=== PATIENT | female | born 1970 | race Two or more races ===

== ENCOUNTER 2017-04-04 13:51 | Emergency (ER) | payer BC, MEDICAID ==
[~2017-04-04] VITALS: Ht 157.5 cm; Wt 70.3 kg
--- NOTE | 2017-04-04 13:51 | NUR ---
C/O NAUSEA, VOMITING AND HEADACHE X 3 DAYS
[2017-04-04] MEDS ORDERED: SUCRALFATE 1 G TABLET ONE (14:44)
[2017-04-04 14:51] LABS: BASOPHILS % (AUTO) 0.3 % (0.0-2.0); EOSINOPHILS # (AUTO) 0.2 /CMM (0.0-0.7); EOSINOPHILS % (AUTO) 3.4 % (0.0-6.0); HEMATOCRIT 40 % (33-45); MEAN CORPUSCULAR HEMOGLOBIN 27 PG (26.0-33.0); MEAN CORPUSCULAR HGB CONC 33 g/dl (31.0-36.0); MEAN CORPUSCULAR VOLUME 81 fL (82-100); MONOCYTES # (AUTO) 0.6 /CMM (0.1-1.30); MONOCYTES % (AUTO) 7.7 % (2.0-12.0); NEUTROPHILS # (AUTO) 4.4 /CMM (1.8-8.9); NEUTROPHILS % (AUTO) 60.6 % (43.0-81.0); PLATELET COUNT (AUTO) 266 /CMM (150-450); RDW COEFFICIENT OF VARIATION 13.8 (11.5-15.0); RED BLOOD CELL COUNT(AUTO) 4.92 MIL/uL (4.0-5.2); WHITE BLOOD COUNT (AUTO) 7.2 K/uL (4.3-11.0)
[2017-04-04 14:51] LABS: APPEARANCE,URINE Clear (CLEAR); BILIRUBIN,URINE Negative (NEGATIVE); BLOOD, URINE Large Ery/uL (NEGATIVE); COLOR,URINE Yellow (YELLOW); KETONES,URINE Negative (NEGATIVE); LEUKOCYTE ESTERASE ,URINE Negative (NEGATIVE); NITRITE, URINE Negative (NEGATIVE); PH,URINE 6.5 (5.0-8.0); PROTEIN,URINE Negative (NEGATIVE); UGLUCOSE Negative (NEGATIVE); UROBILINOGEN,URINE 0.2 EU/dL (0.2)
[2017-04-04 14:56] LABS: PREGNANCY TEST URINE QUAL NEGATIVE (NEGATIVE)
[2017-04-04] MEDS ORDERED: SUCRALFATE 1 G TABLET PO ONE (15:00)
[2017-04-04 15:02] LABS: CALCIUM, SERUM 8.8 mg/dL (8.5-10.1); CARBON DIOXIDE 27 mmol/L (21-32); CHLORIDE 103 mmol/L (98-107); CREATININE 0.7 mg/dL (0.6-1.3); GLUCOSE 100 mg/dL (74-106); SODIUM SERUM 137 mmol/L (136-145); UREA NITROGEN, BLOOD 7 mg/dL (7-18)
[2017-04-04 15:02] LABS: RBC,URINE 21-50 /HPF (0-2)
[2017-04-04 15:03] LABS: BACTERIA,URINE Rare /HPF (None Seen); SQUAMOUS EPITHELIAL CELL,UR Few /HPF (None Seen); WBC,URINE NONE SEEN /HPF (0-3)
[2017-04-04 15:08] LABS: ALANINE AMINOTRANSFERASE 24 U/L (12-78); ALBUMIN 3.5 g/dL (3.4-5.0); ALKALINE PHOSPHATASE 82 U/L (46-116); ASPARTATE AMINOTRANSFERASE 23 U/L (15-37); BILIRUBIN,DIRECT 0.1 mg/dL (0.0-0.2); BILIRUBIN,TOTAL 0.4 mg/dL (0.2-1.0); LIPASE 91 U/L (73-393); TOTAL PROTEIN, SERUM 8.2 g/dL (6.4-8.2)
[2017-04-04 15:10] LABS: TROPONIN I < 0.017 ng/mL (0.00-0.056)
--- NOTE | 2017-04-04 15:32 | NUR ---
Patient discharged to home in stable condition. Written and verbal after care instructions given. Patient verbalizes understanding of instruction.
[2017-04-04 15:34] VITALS: BP 120/71
== END 2017-04-04 15:34 | disposition home or self-care (01) ==
LOC: ER 13:54
DX: R10.9 Unspecified abdominal pain (principal); K21.9 Gastro-esophageal reflux disease without esophagitis; K29.70 Gastritis, unspecified, without bleeding; Z88.0 Allergy status to penicillin; Z90.49 Acquired absence of other specified parts of digestive tract
CPT/HCPCS: 36415; 80048; 80076; 81001; 83690; 84484; 84703; 85025; 93005; 99285; A4606; Z7610; 81000-TC

== ENCOUNTER 2017-06-14 05:45 | Emergency (ER) | payer BC ==
[~2017-06-14] VITALS: Ht 154.9 cm; Wt 59.0 kg
--- NOTE | 2017-06-14 05:50 | NUR ---
TO BED 4 A 47 YO FEMALE PT BIB SELF FROM HOME, PT C/O INSOMINA, JOINT PAIN, AND STOMACH BURNING X 1 DAY. NAD NOTED. VSS. AMBULATORY WITH STEADY GAIT. COMFORT MEASURES RENERED. AWAITING FOR ER MD ISAACS.
[2017-06-14] MEDS ORDERED: MAG HYDROX/AL HYDROX/SIMETH 30 ML UDC ONE (06:28)
[2017-06-14] MEDS ORDERED: DICYCLOMINE HCL 10 MG CAPSULE PO ONE ×2 (06:28→06:30)
[2017-06-14] MEDS ORDERED: FAMOTIDINE (20 MG) 20 MG TABLET ONE (06:29)
[2017-06-14] MEDS ORDERED: FAMOTIDINE (20 MG) 20 MG TABLET PO ONE (06:30)
[2017-06-14] MEDS ORDERED: MAG HYDROX/AL HYDROX/SIMETH 30 ML UDC PO ONE (06:30)
--- NOTE | 2017-06-14 06:31 | NUR ---
MEDICATED PATIENT ORDERED BY DR CHURCHILL.
--- NOTE | 2017-06-14 06:35 | NUR ---
PAINTER [employer]EL AT BEDSIDE TO DRAW BLOOD.
[2017-06-14 06:52] LABS: BASOPHILS # (AUTO) 0.1 /CMM (0.0-0.2); BASOPHILS % (AUTO) 0.8 % (0.0-2.0); EOSINOPHILS # (AUTO) 0.1 /CMM (0.0-0.7); EOSINOPHILS % (AUTO) 1.4 % (0.0-6.0); HEMATOCRIT 39 % (33-45); HEMOGLOBIN 13.1 g/dL (11.5-14.8); LYMPHOCYTES # (AUTO) 1.5 /CMM (0.8-4.8); LYMPHOCYTES % (AUTO) 22.6 % (20.0-44.0); MEAN CORPUSCULAR HEMOGLOBIN 28 PG (26.0-33.0); MEAN CORPUSCULAR HGB CONC 34 g/dl (31.0-36.0); MEAN CORPUSCULAR VOLUME 83 fL (82-100); MONOCYTES # (AUTO) 0.4 /CMM (0.1-1.30); MONOCYTES % (AUTO) 5.7 % (2.0-12.0); NEUTROPHILS # (AUTO) 4.6 /CMM (1.8-8.9); NEUTROPHILS % (AUTO) 69.5 % (43.0-81.0); PLATELET COUNT (AUTO) 240 /CMM (150-450); RDW COEFFICIENT OF VARIATION 14.6 (11.5-15.0); RED BLOOD CELL COUNT(AUTO) 4.74 MIL/uL (4.0-5.2); WHITE BLOOD COUNT (AUTO) 6.6 K/uL (4.3-11.0)
[2017-06-14 07:02] LABS: CALCIUM, SERUM 9.1 mg/dL (8.5-10.1); CREATININE 0.7 mg/dL (0.6-1.3); POTASSIUM 3.9 mmol/L (3.5-5.1)
[2017-06-14 07:07] LABS: ALBUMIN 3.3 g/dL (3.4-5.0); BILIRUBIN,DIRECT 0.1 mg/dL (0.0-0.2); BILIRUBIN,TOTAL 0.4 mg/dL (0.2-1.0)
--- NOTE | 2017-06-14 07:13 | NUR ---
Report recived from Candida BONILLA for continuity of care. Pt is a/ox4, lying in bed. VSS rr even and unlabored. Will continue to monitor.
--- NOTE | 2017-06-14 08:20 | NUR ---
PT. VERBALIZED UNDERSTANDING OF AFTERCARE INSTRUCTIONS.Patient discharged to home in stable condition. Written and verbal after care instructions given. Patient verbalizes understanding of instruction.
[2017-06-14 08:27] VITALS: BP 121/67
== END 2017-06-14 08:27 | disposition home or self-care (01) ==
LOC: ER 05:49
DX: R10.13 Epigastric pain (principal); K21.9 Gastro-esophageal reflux disease without esophagitis; F32.9 Major depressive disorder, single episode, unspecified; F41.9 Anxiety disorder, unspecified; Z88.0 Allergy status to penicillin
CPT/HCPCS: 36415; 80048; 80076; 83690; 84703; 85025; 99284; A4606; Z7610

== ENCOUNTER 2018-01-24 08:53 | Emergency (ER) | payer BC, OTHER ==
[~2018-01-24] VITALS: Ht 154.9 cm; Wt 64.4 kg
--- NOTE | 2018-01-24 08:56 | NUR ---
A/OX4 C/O RT SIDED ABD PAIN WITH NAUSEA X 1 WEEK. NAD VSS RR EVEN AND UNLABORED. PENDING ER MD ISAACS
[2018-01-24] MEDS ORDERED: MORPHINE SULFATE INJ 4 MG/ML DISP.SYRIN ONE (09:17)
[2018-01-24] MEDS ORDERED: ONDANSETRON HCL/PF 4 MG/2 ML VIAL ONE (09:17)
[2018-01-24 09:21] LABS: BASOPHILS % (AUTO) 0.2 % (0.0-2.0); EOSINOPHILS % (AUTO) 1.3 % (0.0-6.0); HEMATOCRIT 35 % (33-45); HEMOGLOBIN 11.4 g/dL (11.5-14.8); LYMPHOCYTES # (AUTO) 1.4 /CMM (0.8-4.8); LYMPHOCYTES % (AUTO) 34.3 % (20.0-44.0); MEAN CORPUSCULAR HEMOGLOBIN 25 PG (26.0-33.0); MEAN CORPUSCULAR HGB CONC 33 g/dl (31.0-36.0); MEAN CORPUSCULAR VOLUME 76 fL (82-100); MONOCYTES # (AUTO) 0.3 /CMM (0.1-1.30); MONOCYTES % (AUTO) 7.4 % (2.0-12.0); NEUTROPHILS # (AUTO) 2.2 /CMM (1.8-8.9); NEUTROPHILS % (AUTO) 56.8 % (43.0-81.0); PLATELET COUNT (AUTO) 247 /CMM (150-450); RDW COEFFICIENT OF VARIATION 14.1 (11.5-15.0); RED BLOOD CELL COUNT(AUTO) 4.58 MIL/uL (4.0-5.2)
[2018-01-24 09:22] LABS: APPEARANCE,URINE Clear (CLEAR); BILIRUBIN,URINE Negative (NEGATIVE); BLOOD, URINE Trace-intact Ery/uL (NEGATIVE); COLOR,URINE Yellow (YELLOW); KETONES,URINE Negative (NEGATIVE); LEUKOCYTE ESTERASE ,URINE Negative (NEGATIVE); NITRITE, URINE Negative (NEGATIVE); PH,URINE 5.5 (5.0-8.0); PROTEIN,URINE Negative (NEGATIVE); UGLUCOSE Negative (NEGATIVE); UROBILINOGEN,URINE 0.2 EU/dL (0.2)
--- NOTE | 2018-01-24 09:27 | NUR ---
NEW IV STARTED ON RAC, 20G. BLOOD DRAWN AND SENT TO LAB.
[2018-01-24 09:30] LABS: CALCIUM, SERUM 8.7 mg/dL (8.5-10.1); CREATININE 0.7 mg/dL (0.6-1.3); POTASSIUM 4.1 mmol/L (3.5-5.1)
[2018-01-24] MEDS ORDERED: MORPHINE SULFATE INJ 2 MG/ML DISP.SYRIN IV ONE (09:30)
[2018-01-24] MEDS ORDERED: ONDANSETRON HCL/PF 4 MG/2 ML VIAL IVP ONE (09:30)
[2018-01-24] MEDS ORDERED: IV NS 0.9% 1,000 ML BAG IV ONE (09:30)
[2018-01-24 09:34] LABS: BACTERIA,URINE Rare /HPF (None Seen); RBC,URINE 0-2 /HPF (0-2); SQUAMOUS EPITHELIAL CELL,UR Few /HPF (None Seen); WBC,URINE 0-2 /HPF (0-3)
[2018-01-24 09:36] LABS: ALBUMIN 3.6 g/dL (3.4-5.0); BILIRUBIN,DIRECT 0.1 mg/dL (0.0-0.2); BILIRUBIN,TOTAL 0.6 mg/dL (0.2-1.0); TOTAL PROTEIN, SERUM 8.4 g/dL (6.4-8.2)
--- NOTE | 2018-01-24 10:08 | NUR ---
Note undone in ED - 01/24/18 at 1013 by GM IV removed. Catheter intact and site benign. Pressure and 4x4 applied to site. No bleeding noted.Patient discharged to home in stable condition. Written and verbal after care instructions given. Instructed not to drive. Patient verbalizes understanding of instruction.
[2018-01-24 10:09] VITALS: BP 104/61
--- NOTE | 2018-01-24 10:23 | NUR ---
IV removed. Catheter intact and site benign. Pressure and 4x4 applied to site. No bleeding noted.Patient discharged to home in stable condition. Written and verbal after care instructions given. Instructed not to drive. Patient verbalizes understanding of instruction.
== END 2018-01-24 10:16 | disposition home or self-care (01) ==
LOC: ER 08:55
DX: R10.9 Unspecified abdominal pain (principal); K21.9 Gastro-esophageal reflux disease without esophagitis; Z90.49 Acquired absence of other specified parts of digestive tract; Z88.0 Allergy status to penicillin
CPT/HCPCS: 36415; 80048; 80076; 81001; 83690; 85025; 85730; 96374; 96375; 99284; A4606; J2270; J2405; J7030; Z7610; 81000-TC

== ENCOUNTER 2018-08-25 17:12 | Emergency (ER) | payer BC ==
[~2018-08-25] VITALS: Ht 157.5 cm; Wt 65.8 kg
--- NOTE | 2018-08-25 17:30 | NUR ---
LLE PAIN X 2 WEEKS, PT DENIES CHEST PAIN OR SOB. NAD, VSS, WILL MONITOR
[2018-08-25] MEDS ORDERED: ACETAMINOPHEN ES 500 MG TABLET ONE (17:56)
[2018-08-25] MEDS: ACETAMINOPHEN 650 MG/20.3 ML UDC PO ONE (17:56)
--- NOTE | 2018-08-25 19:43 | NUR ---
PT LEFT WITHOUT DISCHARGE INSTRUCTIONS AND PRESCRIPTIONS.
[2018-08-25 19:44] VITALS: BP 137/76
== END 2018-08-25 19:44 | disposition home or self-care (01) ==
LOC: ER 17:13
DX: M25.562 Pain in left knee (principal); K21.9 Gastro-esophageal reflux disease without esophagitis; Z90.49 Acquired absence of other specified parts of digestive tract; Z98.890 Other specified postprocedural states; Z88.0 Allergy status to penicillin
CPT/HCPCS: 73564-TC; 93971-TC

== ENCOUNTER 2020-04-10 10:05 | Emergency (ER) | payer BC, MEDICAID ==
[~2020-04-10] VITALS: Ht 154.9 cm; Wt 73.5 kg
[2020-04-10] MEDS ORDERED: IOHEXOL-300 100 ML VIAL IV ONE (10:12)
--- NOTE | 2020-04-10 10:13 | NUR ---
CAME IN FOR RUQ PAIN x 2WEEKS AND WORSE FOR THE PAST 3 DAYS. TO ER BED 11, HOOKED TO MONITOR AND POX, CHANGED TO HOSP GOWN, WARM BLANKET PROVIDED, PATIENT AAO x 4, BREATHING EVEN AND UNLABORED, NOT IN RESPIRATORY DISTRESS. DR ROTHMAN AT BEDSIDE FOR EVAL.
[2020-04-10] MEDS ORDERED: PANTOPRAZOLE 40 MG VIAL IV ONE (10:30)
[2020-04-10] MEDS ORDERED: IV NS 0.9% 1,000 ML BAG IV ONE (10:30)
[2020-04-10] MEDS ORDERED: KETOROLAC TROMETHAMINE INJ 30 MG/ML VIAL IV ONE (10:30)
--- NOTE | 2020-04-10 10:33 | NUR ---
PICKED UP BY WATCH REPAIRER APPRENTICE VIA [facility] FOR CT SCAN.
[2020-04-10 10:36] LABS: BASOPHILS % (AUTO) 0.2 % (0.0-2.0); EOSINOPHILS % (AUTO) 0.3 % (0.0-6.0); HEMATOCRIT 37 % (33-45); HEMOGLOBIN 11.7 g/dL (11.5-14.8); LYMPHOCYTES # (AUTO) 1.1 /CMM (0.8-4.8); LYMPHOCYTES % (AUTO) 20.9 % (20.0-44.0); MEAN CORPUSCULAR HGB CONC 32 g/dl (31.0-36.0); MEAN CORPUSCULAR VOLUME 75 fL (82-100); MONOCYTES # (AUTO) 0.2 /CMM (0.1-1.30); MONOCYTES % (AUTO) 4.5 % (2.0-12.0); NEUTROPHILS % (AUTO) 74.1 % (43.0-81.0); PLATELET COUNT (AUTO) 278 /CMM (150-450); RED BLOOD CELL COUNT(AUTO) 4.91 MIL/uL (4.0-5.2); WHITE BLOOD COUNT (AUTO) 5.4 K/uL (4.3-11.0)
[2020-04-10] MEDS ORDERED: PANTOPRAZOLE 40 MG VIAL ONE (10:39)
[2020-04-10] MEDS ORDERED: KETOROLAC TROMETHAMINE 15 MG/ML VIAL ONE (10:39)
[2020-04-10 10:45] LABS: CALCIUM, SERUM 8.9 mg/dL (8.5-10.1); CREATININE 0.6 mg/dL (0.6-1.3); POTASSIUM 3.8 mmol/L (3.5-5.1)
[2020-04-10 10:51] LABS: ALBUMIN 3.5 g/dL (3.4-5.0); BILIRUBIN,DIRECT 0.1 mg/dL (0.0-0.2); BILIRUBIN,TOTAL 0.5 mg/dL (0.2-1.0); TOTAL PROTEIN, SERUM 8.6 g/dL (6.4-8.2)
[2020-04-10 10:54] LABS: APPEARANCE,URINE Clear (CLEAR); BILIRUBIN,URINE Negative (NEGATIVE); BLOOD, URINE Negative Ery/uL (NEGATIVE); COLOR,URINE Yellow (YELLOW); KETONES,URINE Negative (NEGATIVE); LEUKOCYTE ESTERASE ,URINE Negative (NEGATIVE); NITRITE, URINE Negative (NEGATIVE); PROTEIN,URINE Negative (NEGATIVE); UGLUCOSE Negative (NEGATIVE); UROBILINOGEN,URINE 0.2 EU/dL (0.2)
--- NOTE | 2020-04-10 11:14 | NUR ---
PICKED UP BY SCHOOL SOCIAL WORKER VIA [facility] FOR CT SCAN.
--- NOTE | 2020-04-10 12:19 | NUR ---
IV removed. Catheter intact and site benign. Pressure and 4x4 applied to site. No bleeding noted.Patient discharged to home in stable condition. Written and verbal after care instructions given. Patient verbalizes understanding of instruction.
[2020-04-10 12:20] VITALS: BP 116/71
== END 2020-04-10 12:21 | disposition home or self-care (01) ==
LOC: ER 10:11
DX: R10.11 Right upper quadrant pain (principal); K21.9 Gastro-esophageal reflux disease without esophagitis; Z90.49 Acquired absence of other specified parts of digestive tract; Z98.890 Other specified postprocedural states; Z88.0 Allergy status to penicillin
CPT/HCPCS: 36415; 71045; 74176; 74177; 80048; 80076; 81001; 83690; 85025; 96361; 96374; 96375; 99285; C9113; J1885; J7030; Q9967; 81000-TC

== ENCOUNTER 2020-06-03 11:00 | Emergency (ER) | payer MEDICAID ==
[~2020-06-03] VITALS: Ht 157.5 cm; Wt 69.4 kg
[2020-06-03] MEDS ORDERED: IV NS 0.9% 1,000 ML BAG IV ONE (11:30)
[2020-06-03] MEDS ORDERED: ONDANSETRON HCL/PF 4 MG/2 ML VIAL IVP ONE (11:30)
[2020-06-03] MEDS ORDERED: MORPHINE SULFATE INJ 2 MG/ML DISP.SYRIN IV ONE (11:30)
[2020-06-03] MEDS ORDERED: ONDANSETRON HCL/PF 4 MG/2 ML VIAL ONE (11:35)
[2020-06-03] MEDS ORDERED: MORPHINE SULFATE INJ 4 MG/ML DISP.SYRIN ONE (11:37)
[2020-06-03 11:41] LABS: BASOPHILS # (AUTO) 0.1 /CMM (0.0-0.2); BASOPHILS % (AUTO) 1.3 % (0.0-2.0); EOSINOPHILS % (AUTO) 0.7 % (0.0-6.0); HEMATOCRIT 38 % (33-45); HEMOGLOBIN 12.2 g/dL (11.5-14.8); LYMPHOCYTES # (AUTO) 1.4 /CMM (0.8-4.8); LYMPHOCYTES % (AUTO) 20.8 % (20.0-44.0); MEAN CORPUSCULAR HGB CONC 32 g/dl (31.0-36.0); MEAN CORPUSCULAR VOLUME 77 fL (82-100); MONOCYTES # (AUTO) 0.3 /CMM (0.1-1.30); MONOCYTES % (AUTO) 4.7 % (2.0-12.0); NEUTROPHILS # (AUTO) 4.9 /CMM (1.8-8.9); NEUTROPHILS % (AUTO) 72.5 % (43.0-81.0); PLATELET COUNT (AUTO) 236 /CMM (150-450); RED BLOOD CELL COUNT(AUTO) 4.97 MIL/uL (4.0-5.2); WHITE BLOOD COUNT (AUTO) 6.8 K/uL (4.3-11.0)
--- NOTE | 2020-06-03 11:46 | NUR ---
c/o abd pain x 1 week, +Nausea 8/10 pain scale. PT AAOX4, VSS. RR EVEN & UNLABORED. DENIES CP, SOB, DIZZINESS, N/V/D AT THIS TIME. PT SEEN & EVAL'D BY DR. GREEN. MEDICATED ORDERED, PT NKECHI WELL. WILL CONT TO MONITOR.
[2020-06-03 11:53] LABS: ALBUMIN 3.6 g/dL (3.4-5.0); BILIRUBIN,DIRECT 0.1 mg/dL (0.0-0.2); BILIRUBIN,TOTAL 0.4 mg/dL (0.2-1.0); CREATININE 0.7 mg/dL (0.6-1.3); POTASSIUM 3.8 mmol/L (3.5-5.1); TOTAL PROTEIN, SERUM 8.4 g/dL (6.4-8.2)
[2020-06-03 12:22] LABS: APPEARANCE,URINE Clear (CLEAR); BILIRUBIN,URINE Negative (NEGATIVE); BLOOD, URINE Moderate Ery/uL (NEGATIVE); COLOR,URINE Yellow (YELLOW); KETONES,URINE Negative (NEGATIVE); LEUKOCYTE ESTERASE ,URINE Negative (NEGATIVE); NITRITE, URINE Negative (NEGATIVE); PH,URINE 8.5 (5.0-8.0); PROTEIN,URINE Negative (NEGATIVE); UGLUCOSE Negative (NEGATIVE); UROBILINOGEN,URINE 0.2 EU/dL (0.2)
[2020-06-03 12:34] LABS: BACTERIA,URINE Few /HPF (None Seen); SQUAMOUS EPITHELIAL CELL,UR Few /HPF (None Seen); WBC,URINE 0-2 /HPF (0-3)
[2020-06-03 13:59] VITALS: BP 118/76
--- NOTE | 2020-06-03 13:59 | NUR ---
Patient discharged to home in stable condition. Written and verbal after care instructions given. Patient verbalizes understanding of instruction. IV removed. Catheter intact and site benign. Pressure and 4x4 applied to site. No bleeding noted.
== END 2020-06-03 13:35 | disposition left against medical advice (07) ==
LOC: ER 11:06
DX: R10.9 Unspecified abdominal pain (principal); R11.0 Nausea; K21.9 Gastro-esophageal reflux disease without esophagitis; Z90.49 Acquired absence of other specified parts of digestive tract; Z98.890 Other specified postprocedural states; Z88.0 Allergy status to penicillin
CPT/HCPCS: 36415; 74176; 80048; 80076; 81001; 83690; 85025; 96361; 96374; 96375; 99284; J2270; J2405; J7030; 81000-TC

== ENCOUNTER 2021-10-11 10:40 | Emergency (ER) | payer MEDICAID ==
[~2021-10-11] VITALS: Ht 157.5 cm; Wt 71.2 kg
--- NOTE | 2021-10-11 10:46 | NUR ---
TO ER BED 9. HEADACHE, DIZZINESS X 1 WEEK, WORST TODAY.
--- NOTE | 2021-10-11 10:53 | NUR ---
DR PRAKASH AT BEDSIDE
[2021-10-11] MEDS ORDERED: METOCLOPRAMIDE HCL 10 MG/2 ML VIAL ONE (11:00)
[2021-10-11] MEDS ORDERED: METOCLOPRAMIDE HCL 10 MG/2 ML VIAL IV ONE (11:00)
[2021-10-11] MEDS ORDERED: IV NS 0.9% 1,000 ML BAG IV ONE (11:00)
--- NOTE | 2021-10-11 11:01 | NUR ---
IV ESTBALISHED R AC 20G. CONVERTED TO SALINE LOCK.
[2021-10-11] MEDS ORDERED: KETOROLAC TROMETHAMINE INJ 30 MG/ML VIAL IV ONE (12:30)
[2021-10-11] MEDS ORDERED: KETOROLAC TROMETHAMINE INJ 30 MG/ML VIAL ONE (12:37)
[2021-10-11] MEDS ORDERED: NAPR-1164 PO (13:30)
[2021-10-11] MEDS ORDERED: MECL-159 PO (13:30)
[2021-10-11 13:56] VITALS: BP 121/81
== END 2021-10-11 13:57 | disposition home or self-care (01) ==
LOC: ER 10:43
DX: R51.9 Headache, unspecified (principal); R42 Dizziness and giddiness; K21.9 Gastro-esophageal reflux disease without esophagitis; Z88.0 Allergy status to penicillin
CPT/HCPCS: 70450; 96361; 96374; 99284; J1885; J2765; J7030

== ENCOUNTER 2022-02-21 14:21 | Emergency (ER) | payer MEDICAID ==
[~2022-02-21] VITALS: Ht 157.5 cm; Wt 70.3 kg
[~2022-02-21 14:21] MED LIST: MECL-159 PO; NAPR-1164 PO
[2022-02-21] MEDS ORDERED: KETOROLAC TROMETHAMINE INJ 30 MG/ML VIAL ONE (14:45)
[2022-02-21] MEDS ORDERED: CYCLOBENZAPRINE 10 MG TABLET ONE (14:45)
[2022-02-21] MEDS: KETOROLAC TROMETHAMINE INJ 30 MG/ML VIAL IM ONE (14:46)
[2022-02-21] MEDS: CYCLOBENZAPRINE 10 MG TABLET PO ONE (14:46)
[2022-02-21] MEDS ORDERED: CYCL5TAB PO (15:29)
[2022-02-21] MEDS ORDERED: IBUP-1957 PO (15:29)
[2022-02-21 15:50] VITALS: BP 118/76
== END 2022-02-21 15:50 | disposition home or self-care (01) ==
LOC: ER 14:28
DX: S20.211A Contusion of right front wall of thorax, initial encounter (principal); M25.511 Pain in right shoulder; K21.9 Gastro-esophageal reflux disease without esophagitis; Z90.49 Acquired absence of other specified parts of digestive tract; Z88.0 Allergy status to penicillin; Z79.1 Long term (current) use of non-steroidal anti-inflammatories (NSAID); Z79.899 Other long term (current) drug therapy; V89.2XXA Person injured in unspecified motor-vehicle accident, traffic, initial encounter; Y93.89 Activity, other specified; Y92.89 Other specified places as the place of occurrence of the external cause; Y99.8 Other external cause status
CPT/HCPCS: 71100-TC; 73030-TC; J1885

== ENCOUNTER 2023-05-22 10:50 | Emergency (ER) | payer BC, MEDICAID ==
[~2023-05-22] VITALS: Ht 157.5 cm; Wt 70.8 kg
[~2023-05-22 10:50] MED LIST changes: +AZIT500T PO; +CYCL5TAB PO; +IBUP-1957 PO
[2023-05-22 12:03] LABS: BASOPHILS % (AUTO) 0.2 % (0.0-2.0); HEMATOCRIT 38 % (33-45); HEMOGLOBIN 12.7 g/dL (11.5-14.8); LYMPHOCYTES # (AUTO) 1.6 K/uL (0.8-4.8); LYMPHOCYTES % (AUTO) 33.7 % (20.0-44.0); MEAN CORPUSCULAR HEMOGLOBIN 29 PG (26.0-33.0); MEAN CORPUSCULAR HGB CONC 34 g/dl (31.0-36.0); MEAN CORPUSCULAR VOLUME 85 fL (82-100); MONOCYTES # (AUTO) 0.3 K/uL (0.1-1.30); MONOCYTES % (AUTO) 6.4 % (2.0-12.0); NEUTROPHILS # (AUTO) 2.8 K/uL (1.8-8.9); NEUTROPHILS % (AUTO) 58.7 % (43.0-81.0); PLATELET COUNT (AUTO) 203 K/uL (150-450); RED BLOOD CELL COUNT(AUTO) 4.43 MIL/uL (4.0-5.2); RED CELL DISTRIBUTION WIDTH 13.9 % (11.5-15.0); WHITE BLOOD COUNT (AUTO) 4.7 K/uL (4.3-11.0)
[2023-05-22 12:11] LABS: CALCIUM, SERUM 8.9 mg/dL (8.5-10.1); CARBON DIOXIDE 29 mmol/L (21-32); CHLORIDE 103 mmol/L (98-107); CREATININE 0.6 mg/dL (0.6-1.3); GLUCOSE 99 mg/dL (74-106); SODIUM SERUM 139 mmol/L (136-145); UREA NITROGEN, BLOOD 8 mg/dL (7-18)
[2023-05-22 14:53] VITALS: BP 136/80; TEMP 98.7; O2SAT 99
== END 2023-05-22 14:54 | disposition home or self-care (01) ==
LOC: ER 10:50
DX: R07.89 Other chest pain (principal); K21.9 Gastro-esophageal reflux disease without esophagitis; F41.9 Anxiety disorder, unspecified; Z90.49 Acquired absence of other specified parts of digestive tract; Z88.0 Allergy status to penicillin
CPT/HCPCS: 36415; 71045-TC; 80048-TC; 84484-TC; 85025-TC

== ENCOUNTER 2023-08-03 11:10 | Emergency (ER) | payer MEDICAID ==
[~2023-08-03] VITALS: Ht 157.5 cm; Wt 81.6 kg
[2023-08-03 11:24] VITALS: TEMP 98.1
[2023-08-03] MEDS ORDERED: ONDANSETRON HCL/PF 4 MG/2 ML VIAL ONE (11:51)
[2023-08-03] MEDS ORDERED: ONDANSETRON HCL/PF 4 MG/2 ML VIAL IVP ONE (12:00)
[2023-08-03] MEDS ORDERED: ACETAMINOPHEN ES 500 MG TABLET PO ONE (12:00)
[2023-08-03] MEDS ORDERED: IV NS 0.9% 1,000 ML BAG IV ONE (12:00)
[2023-08-03] MEDS ORDERED: ACETAMINOPHEN ES 500 MG TABLET ONE (12:07)
[2023-08-03 13:43] LABS: BASOPHILS % (AUTO) 0.3 % (0.0-2.0); HEMATOCRIT 41 % (33-45); HEMOGLOBIN 13.4 g/dL (11.5-14.8); LYMPHOCYTES # (AUTO) 0.7 K/uL (0.8-4.8); MEAN CORPUSCULAR HEMOGLOBIN 28 PG (26.0-33.0); MEAN CORPUSCULAR HGB CONC 33 g/dl (31.0-36.0); MEAN CORPUSCULAR VOLUME 85 fL (82-100); MONOCYTES # (AUTO) 0.3 K/uL (0.1-1.30); MONOCYTES % (AUTO) 8.2 % (2.0-12.0); NEUTROPHILS # (AUTO) 3.1 K/uL (1.8-8.9); NEUTROPHILS % (AUTO) 74.5 % (43.0-81.0); PLATELET COUNT (AUTO) 213 K/uL (150-450); RED BLOOD CELL COUNT(AUTO) 4.77 MIL/uL (4.0-5.2); RED CELL DISTRIBUTION WIDTH 14.2 % (11.5-15.0); WHITE BLOOD COUNT (AUTO) 4.2 K/uL (4.3-11.0)
[2023-08-03 14:06] LABS: ALBUMIN 3.7 g/dL (3.4-5.0); BILIRUBIN,DIRECT 0.1 mg/dL (0.0-0.2); BILIRUBIN,TOTAL 0.5 mg/dL (0.2-1.0); CALCIUM, SERUM 9.5 mg/dL (8.5-10.1); CREATININE 0.7 mg/dL (0.6-1.3); POTASSIUM 3.8 mmol/L (3.5-5.1); TOTAL PROTEIN, SERUM 9.2 g/dL (6.4-8.2)
[2023-08-03 14:33] LABS: APPEARANCE,URINE CLEAR (CLEAR); BILIRUBIN,URINE NEGATIVE (NEGATIVE); BLOOD, URINE NEGATIVE Ery/uL (NEGATIVE); COLOR,URINE YELLOW (YELLOW); KETONES,URINE NEGATIVE (NEGATIVE); LEUKOCYTE ESTERASE ,URINE NEGATIVE (NEGATIVE); NITRITE, URINE NEGATIVE (NEGATIVE); PROTEIN,URINE NEGATIVE (NEGATIVE); UGLUCOSE NEGATIVE (NEGATIVE); UROBILINOGEN,URINE 0.2 EU/dL (0.2)
[2023-08-03 14:36] LABS: PREGNANCY TEST URINE QUAL NEGATIVE (NEGATIVE)
[2023-08-03] MEDS ORDERED: ONDA4TAB11 PO (15:06)
[2023-08-03] MEDS ORDERED: GUAI5SYR PO (15:06)
[2023-08-03 15:34] VITALS: BP 125/75; O2SAT 100
== END 2023-08-03 15:00 | disposition home or self-care (01) ==
LOC: ER 11:10
DX: B34.9 Viral infection, unspecified (principal); R11.2 Nausea with vomiting, unspecified; R19.7 Diarrhea, unspecified; R10.30 Lower abdominal pain, unspecified; K21.9 Gastro-esophageal reflux disease without esophagitis; Z90.49 Acquired absence of other specified parts of digestive tract; Z88.0 Allergy status to penicillin
CPT/HCPCS: 99285; 74176; 96374; 96361; 87804 ×2; 85025; 80048; 83690; 80076; 84703; 81003; 36415; J2405; J7030

== ENCOUNTER 2024-07-21 15:07 | Emergency (ER) | payer MEDICAID ==
[~2024-07-21] VITALS: Ht 157.5 cm; Wt 65.8 kg
[~2024-07-21 15:07] MED LIST changes: +GUAI5SYR PO; +ONDA4TAB11 PO
[2024-07-21] MEDS ORDERED: ALBU18HF2 INH (17:40)
[2024-07-21 18:01] VITALS: BP 128/81; TEMP 97.9; O2SAT 99
== END 2024-07-21 18:02 | disposition home or self-care (01) ==
LOC: ER 15:11
DX: S29.011A Strain of muscle and tendon of front wall of thorax, initial encounter (principal); U07.1 COVID-19; J40 Bronchitis, not specified as acute or chronic; K21.9 Gastro-esophageal reflux disease without esophagitis; Z87.19 Personal history of other diseases of the digestive system; Z90.49 Acquired absence of other specified parts of digestive tract; Z88.0 Allergy status to penicillin; X58.XXXA Exposure to other specified factors, initial encounter; Y93.89 Activity, other specified; Y92.89 Other specified places as the place of occurrence of the external cause; Y99.8 Other external cause status
CPT/HCPCS: 71045-TC

== ENCOUNTER 2024-08-12 09:10 | Emergency (ER) | payer MEDICAID ==
[~2024-08-12] VITALS: Ht 157.5 cm; Wt 68.0 kg
[~2024-08-12 09:10] MED LIST changes: +ALBU18HF2 INH
[2024-08-12 09:42] VITALS: TEMP 98.4
[2024-08-12] MEDS ORDERED: LIDOCAINE 5% (PATCH) 1 EA PATCH TP ONE (10:07)
[2024-08-12] MEDS ORDERED: ACETAMINOPHEN 325 MG TABLET ONE (10:08)
[2024-08-12] MEDS: ACETAMINOPHEN 325 MG TABLET PO ONE (10:12)
[2024-08-12] MEDS: LIDOCAINE 5% (PATCH) 1 EA PATCH TP ONE (10:12)
[2024-08-12 10:29] LABS: BASOPHILS % (AUTO) 0.5 % (0.0-2.0); EOSINOPHILS # (AUTO) 0.1 K/uL (0.0-0.7); EOSINOPHILS % (AUTO) 1.1 % (0.0-6.0); HEMATOCRIT 41 % (33-45); HEMOGLOBIN 14.2 g/dL (11.5-14.8); LYMPHOCYTES # (AUTO) 1.5 K/uL (0.8-4.8); LYMPHOCYTES % (AUTO) 31.6 % (20.0-44.0); MEAN CORPUSCULAR HEMOGLOBIN 29 PG (26.0-33.0); MEAN CORPUSCULAR HGB CONC 34 g/dl (31.0-36.0); MEAN CORPUSCULAR VOLUME 84 fL (82-100); MONOCYTES # (AUTO) 0.2 K/uL (0.1-1.30); NEUTROPHILS % (AUTO) 61.8 % (43.0-81.0); PLATELET COUNT (AUTO) 197 K/uL (150-450); RED BLOOD CELL COUNT(AUTO) 4.92 MIL/uL (4.0-5.2); RED CELL DISTRIBUTION WIDTH 13.8 % (11.5-15.0); WHITE BLOOD COUNT (AUTO) 4.9 K/uL (4.3-11.0)
[2024-08-12 10:43] LABS: CALCIUM, SERUM 9.2 mg/dL (8.5-10.1); CARBON DIOXIDE 32 mmol/L (21-32); CHLORIDE 102 mmol/L (98-107); CREATININE 0.6 mg/dL (0.6-1.3); GLUCOSE 97 mg/dL (74-106); POTASSIUM 3.8 mmol/L (3.5-5.1); SODIUM SERUM 139 mmol/L (136-145); UREA NITROGEN, BLOOD 8 mg/dL (7-18)
[2024-08-12 10:45] LABS: ALANINE AMINOTRANSFERASE 17 U/L (12-78); ALBUMIN 3.8 g/dL (3.4-5.0); ALKALINE PHOSPHATASE 118 U/L (46-116); ASPARTATE AMINOTRANSFERASE 14 U/L (15-37); BILIRUBIN,DIRECT 0.1 mg/dL (0.0-0.2); BILIRUBIN,TOTAL 0.5 mg/dL (0.2-1.0); TOTAL PROTEIN, SERUM 9.1 g/dL (6.4-8.2)
[2024-08-12] MEDS ORDERED: METH-649 PO (13:10)
[2024-08-12] MEDS ORDERED: LIDO30AD10 TP (13:10)
[2024-08-12 13:27] VITALS: BP 130/69; O2SAT 99
== END 2024-08-12 13:28 | disposition home or self-care (01) ==
LOC: ER 09:19
DX: M54.6 Pain in thoracic spine (principal); R06.00 Dyspnea, unspecified; K21.9 Gastro-esophageal reflux disease without esophagitis; Z79.1 Long term (current) use of non-steroidal anti-inflammatories (NSAID); Z87.19 Personal history of other diseases of the digestive system; Z90.49 Acquired absence of other specified parts of digestive tract; Z88.0 Allergy status to penicillin
CPT/HCPCS: 36415; 71045-TC; 80048-TC; 80076-TC; 84484-TC; 85025-TC; 85378-TC

== ENCOUNTER 2024-11-25 10:57 | Emergency (ER) | payer MEDICAID ==
[~2024-11-25] VITALS: Ht 162.6 cm; Wt 74.8 kg
[~2024-11-25 10:57] MED LIST changes: +LIDO30AD10 TP; +METH-649 PO
[2024-11-25 13:33] LABS: BASOPHILS % (AUTO) 0.5 % (0.0-2.0); EOSINOPHILS % (AUTO) 0.7 % (0.0-6.0); HEMATOCRIT 40 % (33-45); HEMOGLOBIN 13.4 g/dL (11.5-14.8); LYMPHOCYTES # (AUTO) 1.7 K/uL (0.8-4.8); LYMPHOCYTES % (AUTO) 37.6 % (20.0-44.0); MEAN CORPUSCULAR HEMOGLOBIN 29 PG (26.0-33.0); MEAN CORPUSCULAR HGB CONC 33 g/dl (31.0-36.0); MEAN CORPUSCULAR VOLUME 86 fL (82-100); MONOCYTES # (AUTO) 0.2 K/uL (0.1-1.30); MONOCYTES % (AUTO) 4.9 % (2.0-12.0); NEUTROPHILS # (AUTO) 2.6 K/uL (1.8-8.9); NEUTROPHILS % (AUTO) 56.3 % (43.0-81.0); PLATELET COUNT (AUTO) 209 K/uL (150-450); RED BLOOD CELL COUNT(AUTO) 4.67 MIL/uL (4.0-5.2); RED CELL DISTRIBUTION WIDTH 13.9 % (11.5-15.0); WHITE BLOOD COUNT (AUTO) 4.6 K/uL (4.3-11.0)
[2024-11-25] MEDS: IV NS 0.9% 1,000 ML BAG IV ONE (14:00)
[2024-11-25] MEDS: ONDANSETRON HCL/PF 4 MG/2 ML VIAL IVP ONE (14:00)
[2024-11-25] MEDS: MORPHINE SULFATE INJ 2 MG/ML DISP.SYRIN IV ONE (14:01)
[2024-11-25 14:02] LABS: ALBUMIN 3.8 g/dL (3.4-5.0); BILIRUBIN,DIRECT 0.2 mg/dL (0.0-0.2); BILIRUBIN,TOTAL 0.7 mg/dL (0.2-1.0); CALCIUM, SERUM 9.6 mg/dL (8.5-10.1); CREATININE 0.5 mg/dL (0.6-1.3); POTASSIUM 3.6 mmol/L (3.5-5.1); TOTAL PROTEIN, SERUM 8.5 g/dL (6.4-8.2)
[2024-11-25 14:12] LABS: PREGNANCY TEST URINE QUAL NEGATIVE (NEGATIVE)
[2024-11-25 14:14] LABS: APPEARANCE,URINE CLEAR (CLEAR); BILIRUBIN,URINE NEGATIVE (NEGATIVE); BLOOD, URINE NEGATIVE Ery/uL (NEGATIVE); COLOR,URINE OTHER (YELLOW); KETONES,URINE NEGATIVE (NEGATIVE); LEUKOCYTE ESTERASE ,URINE NEGATIVE (NEGATIVE); NITRITE, URINE NEGATIVE (NEGATIVE); PROTEIN,URINE NEGATIVE (NEGATIVE); UGLUCOSE NEGATIVE (NEGATIVE); UROBILINOGEN,URINE 0.2 EU/dL (0.2)
[2024-11-25] MEDS ORDERED: DICY10SO PO (14:52)
[2024-11-25] MEDS ORDERED: DICY10CA13 PO (14:53)
[2024-11-25] MEDS ORDERED: OMEP40CA21 PO (14:53)
[2024-11-26 01:43] VITALS: BP 130/65; TEMP 97.9; O2SAT 99
== END 2024-11-25 15:00 | disposition home or self-care (01) ==
LOC: ER 11:00
DX: R10.84 Generalized abdominal pain (principal); Z79.1 Long term (current) use of non-steroidal anti-inflammatories (NSAID); Z87.19 Personal history of other diseases of the digestive system; Z88.0 Allergy status to penicillin; Z90.49 Acquired absence of other specified parts of digestive tract
CPT/HCPCS: 99285; 74176; 96374; 96361; 96375; 85025; 80048; 83690; 80076; 84703; 81003; 36415; J2405; J7030; J2270

== ENCOUNTER 2025-03-30 11:40 | Emergency (ER) | payer MEDICAID ==
[~2025-03-30] VITALS: Ht 157.5 cm; Wt 63.5 kg
[~2025-03-30 11:40] MED LIST changes: +DICY10CA13 PO; +OMEP40CA21 PO
[2025-03-30 12:25] LABS: RED CELL DISTRIBUTION WIDTH 14.4 % (11.5-15.0)
[2025-03-30 12:27] LABS: CALCIUM, SERUM 9.2 mg/dL (8.5-10.1); CREATININE 0.8 mg/dL (0.6-1.3); SODIUM SERUM 139.0 mmol/L (136-145); UREA NITROGEN, BLOOD 4.0 mg/dL (7-18)
[2025-03-30] MEDS: ONDANSETRON HCL/PF - ER 4 MG/2 ML VIAL IV ONE (12:30)
[2025-03-30] MEDS: MORPHINE SULFATE INJ 2 MG/ML DISP.SYRIN IV ONE (12:30)
[2025-03-30 12:33] LABS: ASPARTATE AMINOTRANSFERASE 18.0 U/L (15-37); TOTAL PROTEIN, SERUM 8.2 g/dL (6.4-8.2)
[2025-03-30 12:35] LABS: PLATELET COUNT (AUTO) 178 K/uL (150-450); RED BLOOD CELL COUNT(AUTO) 4.75 MIL/uL (4.0-5.2); WHITE BLOOD COUNT (AUTO) 4.0 K/uL (4.3-11.0)
[2025-03-30] MEDS ORDERED: ONDANSETRON HCL/PF 4 MG/2 ML VIAL ONE (12:57)
[2025-03-30] MEDS ORDERED: MORPHINE SULFATE INJ 4 MG/ML DISP.SYRIN ONE (12:57)
[2025-03-30 12:58] LABS: APPEARANCE,URINE CLEAR (CLEAR); BLOOD, URINE NEGATIVE Ery/uL (NEGATIVE); LEUKOCYTE ESTERASE ,URINE NEGATIVE (NEGATIVE); NITRITE, URINE NEGATIVE (NEGATIVE); UGLUCOSE NEGATIVE (NEGATIVE)
[2025-03-30] MEDS ORDERED: FAMO-131 PO (13:24)
[2025-03-30] MEDS ORDERED: FAMOTIDINE/PF INJ 20 MG/2 ML VIAL IV ONE (13:39)
[2025-03-30] MEDS: FAMOTIDINE/PF INJ 20 MG/2 ML VIAL IV ONE (13:44)
[2025-03-30 14:23] VITALS: BP 119/74; TEMP 98.2; O2SAT 98
== END 2025-03-30 14:23 | disposition home or self-care (01) ==
LOC: ER 11:44
DX: K59.00 Constipation, unspecified (principal); R10.32 Left lower quadrant pain; K21.9 Gastro-esophageal reflux disease without esophagitis; Z79.1 Long term (current) use of non-steroidal anti-inflammatories (NSAID); Z79.899 Other long term (current) drug therapy; Z87.19 Personal history of other diseases of the digestive system; Z88.0 Allergy status to penicillin; Z90.49 Acquired absence of other specified parts of digestive tract
CPT/HCPCS: 99285; 74176; 96374; 96375; 85025; 83690; 81003; 36415; 80053; J2270; J1308; J2405 ×2